=== PATIENT | female | born 1965 | race Caucasian/White ===

== ENCOUNTER 2017-04-28 11:24 | Observation (INO) ==
[2017-04-28 12:03] LABS: Basophils % 0.4 %; Eosinophils # 0.2 K/mcL (0.0-0.6); Eosinophils % 1.7 %; Hematocrit 52.3 % (35.3-44.9); Hemoglobin 17.9 g/dL (11.5-15.4); Immature Granulocytes % 0.4 % (0-4); Lymphocytes # 2.5 K/mcL (0.6-4.6); Lymphocytes % 25.4 %; Mean Corpuscular HGB Conc 34.2 g/dL (31.6-35.5); Mean Corpuscular Hemoglobin 33.3 pg (28.0-33.3); Mean Corpuscular Volume 97.4 fL (83.0-100.0); Mean Platelet Volume 9.4 fL (9.4-12.4); Monocytes # 0.6 K/mcL (0.0-1.3); Monocytes % 5.7 %; Neutrophils # 6.5 K/mcL (1.6-8.9); Platelet Count 236 K/mcL (140-400); Red Blood Count 5.37 M/mcL (3.82-4.97); Red Cell Distribution Width 12.8 % (11.5-14.5); Segmented Neutrophils % 66.4 %
[2017-04-28] MEDS ORDERED: Nitroglycerin 0.4 MG TAB.SUBL SL PRN (12:10)
[2017-04-28 12:26] LABS: INR 1.1; Prothrombin Time 11.6 Seconds (9.4-12.1)
[2017-04-28 12:29] LABS: Activated Partial Thrombo Time 31.8 Seconds (26.0-36.0)
[2017-04-28 12:40] LABS: BUN/Creatinine Ratio 18 (6-26); Blood Urea Nitrogen 15 mg/dL (6-20); Calcium 9.9 mg/dL (8.6-10.3); Carbon Dioxide 25 mEq/L (23-29); Chloride 107 mEq/L (98-107); Glucose 125 mg/dL (70-105); Osmolality,Calculated 290 (280-300); Potassium 4.2 mEq/L (3.5-5.1); Sodium 139 mEq/L (136-145); eGFR For Non-African Americans > 60 (> 60)
--- NOTE | 2017-04-28 13:38 | Emergency Department Note ---
Disposition Clinical Impression: Chest pain Qualifiers: Chest pain type: unspecified Qualified Code(s): R07.9 - Chest pain, unspecified Disposition: Admitted As Inpatient Condition: Good Referrals: Gregoria Woodward MD [Primary Care Provider] - Forms: ED Satisfaction Letter Chest Pain HPI - General Chief Complaint: ED Chest Pain Stated Complaint: Chest Pain, KRISTIN Time Seen by Provider: 04/28/17 11:59 Source: patient Limitations: no limitations Vital Signs Reviewed: Yes Nursing Notes Reviewed: Yes - History of Present Illness HPI Narrative: Patient presents today for evaluation of chest pain. Patient states she woke with new onset chest pain. Patient had headache and neck pain as well. Patient describes chest pain as a pressure. She went to work where she continued to have chest pain that was exertional in nature. Patient's blood pressure was checked by one of her coworkers who is a nurse and found to be systolically over 200. She was given someone else's nitroglycerin and this improved her chest pain as well as her blood pressure. The patient upon arrival to the ED complains of chest pain 2 out of 10. She states she feels significantly better. She did have associated difficulty with breathing that has also improved. Severity scale (1-10): 0 - Related Data Home Medications Medication Instructions Recorded Confirmed Fluticasone Propionate Nasal 2 spray NS DAILY PRN 08/25/16 04/28/17 [Flonase] Sertraline [Zoloft] 150 mg PO DAILY 08/25/16 04/28/17 Cholestyramine [Cholestyramine] 0.5 packet PO QAM 04/28/17 04/28/17 Allergies Allergy/AdvReac Type Severity Reaction Status Date / Time No Known Allergies Allergy Verified 08/25/16 12:06 Review of Systems: CONSTITUTIONAL: No weight loss, fever, chills, weakness or fatigue. HEENT: Eyes: No visual changes. Ears, Nose, Throat: No hearing loss, difficulty talking or unable to swallow. SKIN: No rash or itching. CARDIOVASCULAR: Chest pain RESPIRATORY: Shortness of breath GASTROINTESTINAL: No anorexia, nausea, vomiting or diarrhea. No abdominal pain or blood. GENITOURINARY: No burning on urination or hematuria. NEUROLOGICAL: No headache, dizziness, syncope, paralysis, ataxia, numbness or tingling in the extremities. No change in bowel or bladder control. MUSCULOSKELETAL: No muscle pain, back pain, joint pain or stiffness. Chest Pain PMH - Past Medical History Medical history: Reports: other Surgical history: Reports: cholecystectomy Psychiatric history: Reports: depression - Social History Smoking Status: Current every day smoker Alcohol use: Reports: occasionally Drug use: Reports: none Physical Exam General: Well appearing, nontoxic, no acute distress Head: Normocephalic Atraumatic Eyes: PERRL, EOMI ENT: Airway patent, no stridor Neck: supple, no meningismus Chest: Lungs clear to auscultation bilateral Cardiac: Regular rate and rhythm, no murmurs, rubs or gallops Abdomen: soft, nontender, nondistended; no guarding, rebound, or tenderness to percussion Musculoskeletal: Calves symmetric, nontender, no palpable cord Skin: No rash, normal skin tone Neuro: Alert and Oriented to person, place, and time; No focal deficit, CN 2-12 symmetric and intact - General Limitations: no limitations General appearance: alert Course - Reevaluation(s) Reevaluation #1: Patient does not follow regularly with physician. Patient has concerning risk factors. EKG concerning. Troponin negative. Chest x-ray negative. Patient will be admitted for chest pain rule out - Consultations Consultation #1: Discussed with hospitalist. Patient accepted for admission. Vital Signs Temperature 98.7 F 04/28/17 11:30 Pulse Rate 95 04/28/17 11:30 Respiratory Rate 18 04/28/17 11:30 Blood Pressure 180/104 04/28/17 11:30 O2 Sat by Pulse Oximetry 97 04/28/17 11:30 Temperature 98.7 F 04/28/17 11:30 Pulse Rate 86 04/28/17 12:30 Respiratory Rate 20 04/28/17 12:30 Blood Pressure 188/97 04/28/17 12:30 O2 Sat by Pulse Oximetry 98 04/28/17 12:30 Oxygen Delivery Oxygen Delivery Room Air Chest Pain - Medical Records Medical records reviewed: Yes I reviewed the patient's medical records. - Lab Data Lab results reviewed: Yes I reviewed the patient's lab results. Result diagrams: 04/28/17 11:50 04/28/17 11:50 Lab Results 04/28/17 04/28/17 04/28/17 Range/Units 11:50 11:50 11:50 WBC 9.8 (4.3-11.1) K/mcL RBC 5.37 H (3.82-4.97) M/mcL Hgb 17.9 H (11.5-15.4) g/dL Hct 52.3 H (35.3-44.9) % MCV 97.4 (83.0-100.0) fL MCH 33.3 (28.0-33.3) pg MCHC 34.2 (31.6-35.5) g/dL RDW 12.8 (11.5-14.5) % Plt Count 236 (140-400) K/mcL MPV 9.4 (9.4-12.4) fL Immature Gran % 0.4 (0-4) % Seg Neutrophils % 66.4 % Lymphocytes % 25.4 % Monocytes % 5.7 % Eosinophils % 1.7 % Basophils % 0.4 % Neutrophils # 6.5 (1.6-8.9) K/mcL Lymphocytes # 2.5 (0.6-4.6) K/mcL Monocytes # 0.6 (0.0-1.3) K/mcL Eosinophils # 0.2 (0.0-0.6) K/mcL Basophils # 0.0 (0.0-0.2) K/mcL PT (9.4-12.1) Seconds INR APTT (26.0-36.0) Seconds Sodium 139 (136-145) mEq/L Potassium 4.2 (3.5-5.1) mEq/L Chloride 107 (98-107) mEq/L Carbon Dioxide 25 (23-29) mEq/L BUN 15 (6-20) mg/dL Creatinine 0.83 (0.60-1.20) mg/dL Est GFR ( Amer) > 60 (> 60) Est GFR (Non-Af Amer) > 60 (> 60) BUN/Creatinine Ratio 18 (6-26) Glucose 125 H (70-105) mg/dL Calculated Osmolality 290 (280-300) Calcium 9.9 (8.6-10.3) mg/dL Troponin I < 0.03 (< 0.04) ng/mL 04/28/17 Range/Units 11:50 WBC (4.3-11.1) K/mcL RBC (3.82-4.97) M/mcL Hgb (11.5-15.4) g/dL Hct (35.3-44.9) % MCV (83.0-100.0) fL MCH (28.0-33.3) pg MCHC (31.6-35.5) g/dL RDW (11.5-14.5) % Plt Count (140-400) K/mcL MPV (9.4-12.4) fL Immature Gran % (0-4) % Seg Neutrophils % % Lymphocytes % % Monocytes % % Eosinophils % % Basophils % % Neutrophils # (1.6-8.9) K/mcL Lymphocytes # (0.6-4.6) K/mcL Monocytes # (0.0-1.3) K/mcL Eosinophils # (0.0-0.6) K/mcL Basophils # (0.0-0.2) K/mcL PT 11.6 (9.4-12.1) Seconds INR 1.1 APTT 31.8 (26.0-36.0) Seconds Sodium (136-145) mEq/L Potassium (3.5-5.1) mEq/L Chloride (98-107) mEq/L Carbon Dioxide (23-29) mEq/L BUN (6-20) mg/dL Creatinine (0.60-1.20) mg/dL Est GFR ( Amer) (> 60) Est GFR (Non-Af Amer) (> 60) BUN/Creatinine Ratio (6-26) Glucose (70-105) mg/dL Calculated Osmolality (280-300) Calcium (8.6-10.3) mg/dL Troponin I (< 0.04) ng/mL - Radiology Data Radiology results reviewed: Yes I reviewed the patient's radiology results. - EKG Data EKG attestation: Yes I reviewed and interpreted this EKG. EKG results narrative: EKG shows sinus rhythm with nonspecific changes. Concern for T-wave changes in the lateral and inferior leads. No previous EKG. Attestation Statement - Attestation Attestation: I examined this patient and my medical decision-making was reviewed with the Resident Physician. I agree with the documented findings, disposition and treatment plan as described except to the extent set forth below. Patient emergency department with chest pain and pressure. Patient states she was at work and experienced some chest pressure. Her blood pressure was high. She took a nitroglycerin that was given to her. It relieved her pain. On examination she is in no distress with clear lungs. Plan. Patient has some EKG changes with no old for comparison. Troponin is negative. Patient will be admitted for further cardiac workup.
--- NOTE | 2017-04-28 15:14 | Internal Med History&Physical ---
Date of Encounter: 04/28/17 Time of Encounter: 15:13 Assessment and Plan (1) Chest pain Current visit: Yes Status: Acute Possibly due to Uncontrolled HTN Patient with multiple risk factors, including smoking, family history and uncontrolled HTN EKG with non-specific T waves changes Troponin negative ECHO am Cycle trops Stress test am Check lipids, A1C Qualifiers: Chest pain type: unspecified Qualified Code(s): R07.9 - Chest pain, unspecified (2) Hypertensive urgency Current visit: Yes Status: Acute Improving Start patient on Norvasc 10mg daily (3) Tobacco abuse Current visit: Yes Status: Chronic encourage cessation NRT declined for now (4) Polycythemia Current visit: Yes Status: Acute HB 17.9 possibly due to chronic hypoxia Internal Medicine - H&P: HPI Chief complaint: chest pain Admitted From: Home Plans for Post Hospital Care: Home History of present illness: Ms. Jason is a 52 year old female , heavy tobacco use who woke up this morning and experienced chest pain, she reported it as dull and non-radiating but felt she must have also felt numbness in her L arm and neck during the episode. Pain was about 8/10 and resolved spontaneously. 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 She received 4 ASAs and One nitro and that relieved her pain At time of arrival, she said chest pain was 2/10, but resolved at my time of review She has a known history of elevated blood pressures but not on any medications Work up here unremarkable except for polycythemia and EKGs with non-specific EKG changes She has a significant family hx of heart disease in her mother, she also has a hx of DM in her siblings She has smoked 1PPD for several years. Past Med Surg Social Fam HX - Past Medical History Medical history: hypertension, other Psychiatric history: depression - Past Surgical History Surgical History: cholecystectomy - Social History Smoking Status: Current every day smoker Smokeless Tobacco Status: No Alcohol use: occasionally Drug use: none - Family History Mother Adopted: No Race: Hx Family Cardiac Disorders: Yes Brother Hx Family Endocrine Disorder: Yes Internal Medicine - H&P: Meds Fluticasone Propionate Nasal [Flonase] 2 spray NS DAILY PRN 08/25/16 [History] Sertraline [Zoloft] 150 mg PO DAILY 08/25/16 [History] Cholestyramine [Cholestyramine] 0.5 packet PO QAM 04/28/17 [History] 3 Allergy/AdvReac Type Severity Reaction Status Date / Time No Known Allergies Allergy Verified 08/25/16 12:06 All Systems PM: A 10-system review of systems was performed and is negative for pertinent findings except as documented above in the HPI. - Constitutional Constitutional: no chills, no fever(s), no night sweats - EENT Eyes: no change in vision, no discharge, no pain, no photophobia Nose, mouth and throat: no dysphagia, no nasal discharge, no neck pain, no sore throat - Cardiovascular Cardiovascular ROS IM: as per HPI - Respiratory Respiratory: as per HPI - Gastrointestinal Gastrointestinal: no abdominal pain, no diarrhea, no hematemesis, no hematochezia, no melena, no nausea, no vomiting - Genitourinary Genitourinary: no change in urinary stream, no dysuria, no flank pain, no hematuria - Musculoskeletal Musculoskeletal ROS IM: no numbness, no tingling - Integumentary Integumentary IM: no rash, no unusual bruising - Neurological Neurological ROS: no confusion, no convulsions, no focal weakness, no numbness, no tingling, no tremor(s) - Hematologic/Lymphatic Hematologic/Lymphatic: no easy bruising - Constitutional Vitals: Temp Pulse Resp BP Pulse Ox 98.7 F 77 20 157/100 95 04/28/17 11:30 04/28/17 14:36 04/28/17 14:36 04/28/17 14:36 04/28/17 14:36 General appearance: Present: A&O X 3, pleasant, no acute distress - Head Head exam: Present: atraumatic, normocephalic - Eye Eye exam: Present: PERRL, conjuntiva pink, sclera anicteric Pupils: Present: PERRL - Neck Neck exam general surgery: Present: supple, trachea midline. Absent: lymphadenopathy - Respiratory Respiratory exam: Present: CTAB. Absent: accessory muscle use, rales, rhonchi, wheezes - Cardiovascular Cardiovascular exam: Present: RRR, +S1, +S2. Absent: diastolic murmur, gallop, rubs, systolic murmur - GI/Abdominal GI/Abdominal exam: Present: normal bowel sounds, soft, no peritoneal signs. Absent: distended, tenderness - Extremities Exam Extremities exam: Present: warm, radial pulses palpable and symmetrical. Absent : calf tenderness, cyanotic, pedal edema - Neurological Exam Neurological exam: Present: alert, CN II-XII intact, oriented X3, no focal deficits. Absent: pronater drift, facial droop, speech deficit - Skin Skin exam: Present: dry, intact Internal Med - H&P Results - Labs CBC & Chem 7: 04/28/17 11:50 04/28/17 11:50 Labs: Short CBC 04/28/17 Range/Units 11:50 WBC 9.8 (4.3-11.1) K/mcL Hgb 17.9 H (11.5-15.4) g/dL Hct 52.3 H (35.3-44.9) % Plt Count 236 (140-400) K/mcL Neutrophils # 6.5 (1.6-8.9) K/mcL BMP 04/28/17 11:50 Sodium 139 Potassium 4.2 Chloride 107 Carbon Dioxide 25 BUN 15 Creatinine 0.83 Glucose 125 H Calcium 9.9 Cardiac Enzymes 04/28/17 Range/Units 11:50 Troponin I < 0.03 (< 0.04) ng/mL - Impressions ITS Impressions Chest X-Ray 04/28/17 11:36 IMPRESSION: No active cardiopulmonary disease D/ / Alberto Mcdonald MD / Alberto Mcdonald MD Interpreting Provider: Alberto Mcdonald MD
[2017-04-28] MEDS ORDERED: Acetaminophen 325 MG TABLET PO PRN (15:16)
[2017-04-28] MEDS ORDERED: Naloxone 0.4 MG/ML INJ IVP PRN (15:16)
[2017-04-28] MEDS ORDERED: *HR* HYDROcodone/Acet 5/325 mg TABLET PO PRN (15:16)
[2017-04-28] MEDS ORDERED: *HR* OxyCODONE Immed Rel 5 MG TABLET PO PRN (15:16)
[2017-04-28] MEDS ORDERED: amLODIPine 5 MG TABLET PO ONE (15:20)
[2017-04-28] MEDS ORDERED: Fluticasone Propionate Nasal 50 MCG/SPRAY BOTTLE NS PRN (15:59)
[2017-04-29 04:58] LABS: Basophils % 0.5 %; Eosinophils # 0.3 K/mcL (0.0-0.6); Eosinophils % 4.6 %; Hematocrit 48.4 % (35.3-44.9); Hemoglobin 16.8 g/dL (11.5-15.4); Immature Granulocytes % 0.4 % (0-4); Lymphocytes # 2.4 K/mcL (0.6-4.6); Mean Corpuscular HGB Conc 34.7 g/dL (31.6-35.5); Mean Corpuscular Hemoglobin 33.7 pg (28.0-33.3); Mean Platelet Volume 9.3 fL (9.4-12.4); Monocytes # 0.6 K/mcL (0.0-1.3); Monocytes % 7.9 %; Neutrophils # 4.1 K/mcL (1.6-8.9); Platelet Count 191 K/mcL (140-400); Red Blood Count 4.99 M/mcL (3.82-4.97); Red Cell Distribution Width 12.9 % (11.5-14.5); Segmented Neutrophils % 54.6 %
[2017-04-29 05:17] LABS: BUN/Creatinine Ratio 23 (6-26); Blood Urea Nitrogen 16 mg/dL (6-20); Calcium 9.5 mg/dL (8.6-10.3); Carbon Dioxide 23 mEq/L (23-29); Chloride 110 mEq/L (98-107); Chol/HDL Ratio 4.4 (0-4.9); Cholesterol 191 mg/dL (< 200); Glucose 105 mg/dL (70-105); HDL Cholesterol 43 mg/dL (40-59); LDL Cholesterol,Calculated 122 mg/dL (0-99); Osmolality,Calculated 290 (280-300); Potassium 4.2 mEq/L (3.5-5.1); Sodium 139 mEq/L (136-145); Triglycerides 128 mg/dL (< 150); eGFR For Non-African Americans > 60 (> 60)
[2017-04-29] MEDS ORDERED: amLODIPine 5 MG TABLET PO SCH (09:00)
[2017-04-29] MEDS ORDERED: Cholestyramine 4 GM POWD.PACK PO SCH (09:00)
[2017-04-29] MEDS ORDERED: Aspirin Enteric Coated 81 MG Tablet PO SCH (09:00)
--- NOTE | 2017-04-29 16:33 | Discharge Summary ---
Date of Encounter: 04/29/17 Time of Encounter: 14:15 - Discharge Diagnosis (1) Chest pain Priority: Primary Status: Acute Comments: Patient denies chest pain currently. Stress test induced left bundle branch block with secondary ST depression patient gaited EF of greater than 70%. Perfusion imaging was negative for ischemia or infarct. Will start patient on aspirin 81 mg daily. Echocardiogram with preserved EF, atypical septal motion consistent with bundle branch block, mild LVEDD and no significant valvular dysfunction. Troponins were negative 3. Chest x-ray was negative for any cardiopulmonary disease. This pain was most likely related to hypertensive urgency. Did discuss modifying risk factors including stopping smoking, decreasing caffeine, taking blood pressure medications. Patient will follow up with cardiology, I spoke briefly with cardiology SENIOR SPECIALIST who will arrange for follow-up. Qualifiers: Chest pain type: unspecified Qualified Code(s): R07.9 - Chest pain, unspecified (2) Hypertensive urgency Priority: Secondary Status: Acute Comments: Pt has been started on Norvasc 10mg po daily that does not appear to be helping with blood pressure. Will add HCTZ 12.5mg po daily and assess for effectiveness. (3) Polycythemia Priority: Secondary Status: Acute Comments: 16.8, improving. Most likely due to chronic hypoxia. Follow with primary care. (4) Tobacco abuse Priority: Secondary Status: Chronic Comments: Smoking cessation education completed. Pt states that she will use nicotine patches after discharge. Hospital course: Ms. Jason is a 52 year old female with no significant PMH other than tobacco abuse. Pt was at work having chest pain and was found to have HTN, hypertensive urgency with a SBP > 200. She has been started on Norvasc 10m po daily that seems to have controlled BP today. She denies chest pain, SOB, n/v/d, abd pain, dizziness or headache. Pt staets that she is ready to stop smoking, as well. Pt will be given Nicoderm patches and will continue ASA 81mg po daily. Pt is stable and appropriate for discharge. Discharge discussed with: patient, family Time spent discussing smoking cessation with patient: 3 to 10 minutes - Time Spent with Patient Total time spent providing and/or coordinating discharge services: Less than 30 minutes - Discharge Medications Prescriptions: amLODIPine [Norvasc] 10 mg PO DAILY #60 tablet Aspirin Enteric Coated [Aspirin EC] 81 mg PO DAILY #30 tablet.dr Home Medications: Fluticasone Propionate Nasal [Flonase] 2 spray NS DAILY PRN 08/25/16 [History] Sertraline [Zoloft] 150 mg PO DAILY 08/25/16 [History] Cholestyramine 0.5 packet PO QAM 04/28/17 [History] Aspirin Enteric Coated [Aspirin EC] 81 mg PO DAILY #30 tablet. 04/29/17 [Rx] amLODIPine [Norvasc] 10 mg PO DAILY #60 tablet 04/29/17 [Rx] Allergies/Adverse Reactions: 3 Allergy/AdvReac Type Severity Reaction Status Date / Time No Known Allergies Allergy Verified 08/25/16 12:06 Date of admission: 04/28/17 16:07 Primary care physician: Gregoria [facility] [place] Discharging clinician: Zelda Valerio Anticipated date of discharge: 04/29/17 - Constitutional Vitals: Temp Pulse Resp BP Pulse Ox 98.2 F 81 16 194/106 97 04/29/17 11:54 04/29/17 11:54 04/29/17 11:54 04/29/17 11:54 04/29/17 11:54 General appearance: Present: cooperative, A&O X 3, pleasant, no acute distress, answers questions appropriately - Head Head exam: Present: atraumatic, normal inspection, normocephalic - Eye Eye exam: Present: normal appearance, conjuntiva pink, sclera anicteric - Neck Neck exam general surgery: Present: normal inspection, supple, trachea midline. Absent: lymphadenopathy, tenderness - Respiratory Respiratory exam: Present: CTAB. Absent: accessory muscle use, chest wall tenderness, rales, respiratory distress, rhonchi, wheezes - Cardiovascular Cardiovascular exam: Present: RRR, +S1, +S2. Absent: diastolic murmur, gallop, rubs, systolic murmur - GI/Abdominal GI/Abdominal exam: Present: normal bowel sounds, soft, no peritoneal signs. Absent: distended, hepatomegaly, tenderness - Extremities Exam Extremities exam: Present: normal capillary refill, normal inspection, warm, radial pulses palpable and symmetrical. Absent: calf tenderness, cyanotic, pedal edema, tenderness - Neurological Exam Neurological exam: Present: alert, oriented X3, no focal deficits. Absent: facial droop, speech deficit - Skin Skin exam: Present: dry, intact, normal color, warm. Absent: rash - Patient Status Disposition: Home, Self-Care Condition: Good Functional capacity at discharge: independent ambulation Overall status at discharge: patient is back to baseline - Discharge Instructions Follow Up With: Gregoria Woodward MD [Primary Care Provider] - Additional Instructions: Please follow up with your primary care provider in the next 7-10 days for recheck. You will need close monitoring for your blood pressure until it is well- regulated. Take a baby aspirin every day. Return to the emergency department as needed for any other problems or concerns , or if your symptoms return or worsen. Return to her normal activities as tolerated. Please stop smoking. Use your patches as directed. Incorporate diet and exercise into your day. DASH diet is a good start, information included. - Diet and Activity Activity: increase activity as tolerated Diet: low fat, low cholesterol, low salt diet
[2017-04-29 16:39] VITALS: BP 158/83
--- NOTE | 2017-04-29 18:38 | Electrocardiograph Report ---
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
[2017-04-30 13:33] LABS: Hemoglobin A1C 5.3 %
== END 2017-04-29 17:20 | disposition home or self-care (01) ==
LOC: EMEROO 11:24 → 3BNU 11:24
PROVIDERS: ADMIT Internal Medicine; ATTEND Registered Nurse